=== PATIENT | female | born 1980 | race Caucasian/White ===

== ENCOUNTER 2019-08-23 19:59 | Emergency (ER) | payer OTHER ==
[~2019-08-23] VITALS: Ht 162.6 cm; Wt 68.2 kg
[2019-08-23] MEDS ORDERED: BENA25CA4 PO (20:03)
[2019-08-23] MEDS ORDERED: FAMOTIDINE INJ 20MG/2ML VIAL (S0028) IVP ONE (21:30)
[2019-08-23] MEDS ORDERED: methylPREDNISolone INJ 125 MG/2 ML VIAL (J2930) IV ONE (21:30)
[2019-08-23] MEDS ORDERED: NS 1,000 ML IV ONE (21:30)
[2019-08-23 22:37] LABS: BASO % 0.4 % (0.0-1.0); EOS # 0.1 10^3/uL (0.0-0.5); EOS % 1.2 % (0.0-3.0); HEMATOCRIT 40.8 % (36.0-47.0); HEMOGLOBIN 13.3 g/dl (12.0-15.5); LYMPH # 2.5 10^3/uL (1.5-5.0); LYMPH % 33.4 % (24.0-44.0); MEAN CORPUSCULAR HEMOGLOBIN 30.2 pg (27.0-33.0); MEAN CORPUSCULAR HGB CONC 32.6 g/dl (32.0-36.5); MEAN CORPUSCULAR VOLUME 92.7 fl (80.0-96.0); MONO # 0.4 10^3/uL (0.0-0.8); MONO % 5.6 % (0.0-5.0); NEUTROPHILS # 4.4 10^3/uL (1.5-8.5); NEUTROPHILS % 59.3 % (36.0-66.0); PLATELET COUNT, AUTOMATED 275 10^3/uL (150-450); WHITE BLOOD COUNT 7.5 10^3/uL (4.0-10.0)
[2019-08-23 22:55] LABS: ALBUMIN 3.7 GM/DL (3.2-5.2); ALT/SGPT 16 U/L (12-78); BILIRUBIN,DIRECT < 0.1 MG/DL (0.0-0.2); BILIRUBIN,TOTAL 0.2 MG/DL (0.2-1.0); BLOOD UREA NITROGEN 15 MG/DL (7-18); CALCIUM LEVEL 8.6 MG/DL (8.5-10.1); CARBON DIOXIDE LEVEL 26 MEQ/L (21-32); CHLORIDE LEVEL 111 MEQ/L (98-107); COMPLEMENT C4 14 MG/DL (10-40); CREATININE FOR GFR 0.78 MG/DL (0.55-1.30); GLOMERULAR FILTRATION RATE > 60.0 (>60); GLUCOSE, FASTING 88 MG/DL (70-100); POTASSIUM SERUM 4.3 MEQ/L (3.5-5.1); SODIUM LEVEL 143 MEQ/L (136-145); TOTAL PROTEIN 7.5 GM/DL (6.4-8.2)
[2019-08-23 22:57] LABS: HCG, SERUM QUALITATIVE NEGATIVE (NEGATIVE)
[2019-08-23] MEDS ORDERED: diphenhydrAMINE 25 MG CAP PO ONE (23:15)
[2019-08-23] MEDS ORDERED: PRED10TA2 PO (23:32)
[2019-08-23] MEDS ORDERED: hydrOXYzine 25 MG TAB PO STA (23:41)
[2019-08-23 23:42] LABS: ERYTHROCYTE SEDIMENTATION RATE 11 mm/hr (0-20)
[2019-08-24] MEDS ORDERED: diphenhydrAMINE CREAM 30GM TOP STA (00:04)
[2019-08-24] MEDS ORDERED: HYDR-3363 PO (00:11)
[2019-08-24] MEDS ORDERED: BENA2CRE3 TOP (00:12)
[2019-08-24 00:31] VITALS: BP 115/59
== END 2019-08-24 00:38 | disposition home or self-care (01) ==
LOC: M ED 19:59
DX: L29.9 Pruritus, unspecified (principal); L50.9 Urticaria, unspecified
CPT/HCPCS: 80048; 80076; 83519; 84703; 85025; 85280; 85652; 86140; 86160; 86161; 96374; 96375; 99283; J2930